=== PATIENT | female | born 1965 | race Caucasian/White ===

== ENCOUNTER 2019-12-03 16:22 | Emergency (ER) | payer OTHER, SELFPAY ==
--- NOTE | ~2019-12-03 | XR_ITS ---
EXAMINATION: XR knee LT min 4V DATE: 12/03/2019 18:34 INDICATION: Left knee pain and swelling TECHNIQUE: Four views of the left knee were obtained. COMPARISON: None. FINDINGS: Alignment is normal. No fracture or osteochondral lesion. 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 There is a moderate-sized knee joint effusion. Mildly soft tissue swelling is noted. IMPRESSION: 1. Moderate size knee joint effusion without acute osseous abnormality. Reviewed, dictated and finalized at location A.
[2019-12-03 16:46] VITALS: BP 120/65; PULSE 99; RESP 20; TEMP 37.4; O2SAT 99
[2019-12-03] MEDS: KETOROLAC (*BKC) 60 MG/2 ML VIAL IM (18:37)
[2019-12-03 18:47] LABS: Basophils Absolute Auto 0.1 K/mm3 (0.0-0.1); Basophils Percent Auto 0.6 % (0.2-1.2); Eosinophils Absolute Auto 0.3 K/mm3 (0-0.3); Eosinophils Percent Auto 3.3 % (0-4.4); Hematocrit 43.6 % (37.0-47.0); Hemoglobin 14.7 g/dL (12.0-15.0); Immature Granulocyte Absolute 0.04 K/mm3 (0.00-0.031); Immature Granulocyte Percent A 0.4 % (0-0.5); Lymphocytes Absolute Auto 2.72 K/mm3 (0.9-3.2); Lymphocytes Percent Auto 30.1 % (18.3-44.2); Mean Corpuscular HGB Conc 33.7 g/dl (32-36); Mean Platelet Volume 9.8 fl (7.4-10.4); Monocytes Absolute Auto 0.8 K/mm3 (0.1-0.6); Monocytes Percent Auto 8.8 % (2.6-8.5); Neutrophils Absolute Auto 5.1 K/mm3 (1.3-6.7); Neutrophils Percent Auto 56.8 % (45.5-73.1); Platelet Count Result 185 k/mm3 (150-375); Red Blood Count 4.59 M/mm3 (4.2-5.4); Red Cell Distribution Width 12.6 % (11.5-14.5)
[2019-12-03 18:54] VITALS: BP 120/86; PULSE 71; RESP 18; O2SAT 100
--- NOTE | 2019-12-03 19:01 | ED.LOWEXIN ---
HPI - Extremity Injury (Lower) General Chief Complaint: Extremity Injury, Lower Stated Complaint: fall/lt knee injury Time Seen by Provider: 12/03/19 17:41 Source: patient Mode of arrival: wheelchair Limitations: no limitations History of Present Illness HPI Narrative: This is a 54-year-old female that presents to the emergency department for left knee pain x2 weeks. Reports she fell out of bed 2 weeks ago and landed on the knee. Reports she was seen at the emergency department at this time and had a knee x-ray that did not show any fractures. Reports she was seen by her primary for this a couple of days ago as she was starting to have some swelling in the knee. Reports he took some fluid off the knee with improvement in her pain. Reports the fluid has again accumulated and she is having more pain and swelling in the knee. Denies fever or erythema. Related Data Home Medications Medication Instructions Recorded Confirmed citalopram [Celexa] 40 mg PO DAILY 12/03/19 promethazine [Phenergan] 25 mg IM Q6H PRN 12/03/19 sumatriptan succinate [Imitrex SUBCUT 12/03/19 STATdose Pen] topiramate [Topamax] 200 mg PO DAILY 12/03/19 Allergies Allergy/AdvReac Type Severity Reaction Status Date / Time iohexol Allergy Hives Verified 12/03/19 16:43 [From contrast - CT, X-RAY] Review of Systems Review of Systems: Narrative: CONSTITUTIONAL: Denies fever SKIN: Denies rash MUSCULOSKELETAL: Reports joint pain, and myalgia. NEUROLOGIC: Denies numbness All systems reviewed & are unremarkable except as noted in HPI and below PMFSH Past Medical History Medical History (Updated 12/03/19 @ 21:55 by Ayesha Bains PA-C) History of migraine Social History Social History (Updated 12/03/19 @ 19:05 by Ayesha Bains PA-C) Substance use: never Gender identity (if verbalized by the patient): Female Sexual Orientation (if Verbalized by the Patient): Straight or Heterosexual Exam Narrative: Exam Narrative: GENERAL: Well-appearing, well-nourished, and in no acute distress. HEAD: Normocephalic, atraumatic. EYES: EOMI. EXTREMITIES: Normal range of motion, except decreased active ROM in the left knee due to pain. Moderate edema about the left knee anteriorly. No erythema or warmth of the knee. Normal DP pulses SKIN: Warm, dry, no rash. NEURO: No focal deficits. Alert and oriented x3. PSYCH: Normal mood and affect Course Vital Signs Vital signs: Vital Signs Temperature 99.3 F 12/03/19 16:46 Pulse Rate 99 12/03/19 16:46 Respiratory Rate 20 12/03/19 16:46 Blood Pressure 120/65 12/03/19 16:46 Pulse Oximetry 99 12/03/19 16:46 Temperature 99.3 F 12/03/19 16:46 Pulse Rate 71 12/03/19 18:54 Respiratory Rate 18 12/03/19 18:54 Blood Pressure 120/86 12/03/19 18:54 Pulse Oximetry 100 12/03/19 18:54 Procedures Joint Aspiration/Injection Joint Asp./Inject. 1: Joint Aspiration Date: 12/03/19 Joint Aspiration Time: 21:00 Side of body: left Joint Aspirated: knee Ultrasound Guidance: No Skin Prep: Povidone-Iodine1% Local Anesthetic: lidocaine 1% and with epi Amount of anesthesia used (mL): 6 Needle Size Used: 18G Fluid Obtained: clear Total fluid obtained (mL): 100 Patient Tolerated Procedure: well Complications: none Additional Comments: Joint aspiration performed by Dr. Mercado [facility] - Extremity Injury (Lower) MDM Narrative Medical decision making narrative: Patient presents to the emergency department for left knee joint effusion. Reported an injury to the area 2 weeks ago. Reports she had x-rays at that time which were normal. She followed up with her primary who aspirated the joint and she had relief after this. Reports she again started to have swelling and pain in the knee after this. She is afebrile and nontoxic-appearing. No erythema or warmth of the knee. CBC is without leukocytosis. Inflam
--- NOTE | 2019-12-03 19:23 | PC.NURSE ---
Pt resting on stretcher at this time; remains at bedside. pt in NAD. Denies needs/concerns. Will continue to monitor pt for baseline status changes.
[2019-12-03 19:28] LABS: Erythrocyte Sedimentation Rate 15 mm/hr (0-20)
[2019-12-03 19:32] LABS: Anion Gap 6 mmol/L (8-16); Blood Urea Nitrogen 12 mg/dL (7-17); CRP 1.2 mg/dL (<1.0); Calcium 9.2 mg/dL (8.4-10.2); Carbon Dioxide 24 mmol/L (22-30); Chloride 107 mmol/L (98-107); Estimated CRCL calculation 78 ml/min; Estimated Glomerular Filt Rate > 60; Glucose 111 mg/dL (65-105); Potassium 3.7 mmol/L (3.4-5.0); Sodium 137 mmol/L (137-145)
[2019-12-03 19:33] LABS: INR 0.9; Prothrombin Time 11.8 Seconds (11.1-14.7)
[2019-12-03 19:34] LABS: Partial Thromboplastin Time 31.2 SECONDS (22.3-36.8)
[2019-12-03 21:59] LABS: Appearance Synovial Fluid Cloudy (Clear); Color Synovial Fluid Yellow (Colorless); Neutrophils Synovial Fluid 98 % (0-25); Nucleated Cell Synovial Fluid 4841 /uL (0-200); RBC Synovial Fluid 2324 /uL (0-0); Source Synovial Fluid Synovial fluid
[2019-12-03 22:00] VITALS: BP 118/72; PULSE 82; RESP 18; O2SAT 99
[2019-12-03 22:00] LABS: Macrophages Synovial Fluid 2 %
[2019-12-03 22:03] LABS: Crystals Synovial Fluid None Seen (None Seen)
== END 2019-12-03 22:01 | disposition home or self-care (01) ==
PROVIDERS: Physician Assistant; Emergency Provider Emergency Medicine
DX: M25.462 Effusion, left knee (principal)
CPT/HCPCS: 20610; 36415; 73564; 80048; 84550; 85025; 85610; 85652; 85730; 86140; 87070; 87075; 87205; 88108; 89051; 89060; 96372; 99283; J1885